=== PATIENT | born 2000 ===

== ENCOUNTER 2020-09-18 10:02 | Outpatient (REF) | payer BC, SELFPAY | END 2020-09-18 10:03 | disposition home or self-care (01) | LOC: HO.SCI 10:02 | PROVIDERS: Visit Provider Otolaryngology | DX: Z13.89 Encounter for screening for other disorder (principal) ==

== ENCOUNTER 2020-09-27 15:03 | Outpatient (REF) | payer BC, SELFPAY ==
--- NOTE | ~2020-09-27 | CT_ITS ---
EXAMINATION: CT MAXILLOFACIAL WITHOUT CONTRAST CLINICAL INFORMATION: Sinonasal polyp. COMPARISON: None available. TECHNIQUE: Multidetector helical imaging was performed in the axial plane with generation of coronal and sagittal reformatted images. This CT examination was performed using dose optimization techniques as appropriate, variously including the following: *Automated exposure control. *Adjustment of mA and/or kV according to patient size (this includes techniques or standardized protocols for targeted exams where dose is matched to indication/reason for exam; i.e. extremities or head). *Use of iterative reconstruction technique. DLP: 83 mGy-cm FINDINGS: FRONTAL SINUSES AND DRAINAGE PATHWAYS: The frontal sinuses are clear. The frontoethmoidal recesses are patent. MAXILLARY SINUSES AND DRAINAGE PATHWAYS: Mild mucosal thickening of the maxillary sinuses. The maxillary ostia and infundibula are patent. ETHMOID SINUSES: Minimal mucosal thickening of the ethmoid air cells. The ethmoid roofs appear symmetric and intact. SPHENOID SINUS AND DRAINAGE PATHWAYS: Minimal mucosal thickening of the sphenoid sinus. Partial opacification of the sphenoethmoidal recesses. NASAL PASSAGE: Mild to moderate mucosal thickening of the nasal passages, most notably anteriorly. No demonstrated polypoid mucosal thickening. Moderate rightward nasal septal deviation. There is a small region of dehiscence within the posterior nasal septum. ADDITIONAL RELEVANT FINDINGS: Postsurgical changes of prior maxillofacial surgery with bilateral malleable plate and screw fixation along the nasomaxillary struts, zygomaticomaxillary sutures, and mandibular rami. The hard palate remains not fully fused in the midline. The lamina papyracea are intact. No demonstrated abnormalities of the orbits. The carotid canals are normally covered by bone. No significant maxillary periapical disease. The temporomandibular joints are normal. Trace left-sided mastoid effusion. The right-sided mastoid air cells and middle ear cavities remain well aerated. Limited evaluation of the intracranial structures without significant abnormalities. Nonspecific moderate prominence of the adenoids. CT/CT sinus wo con IMPRESSION: 1. Mild sinonasal mucosal disease. Mild to moderate mucosal thickening of the nasal passages. No demonstrated polypoid mucosal thickening. 2. Changes of prior maxillofacial surgery. 3. Rightward nasal septal deviation. 4. Nonspecific moderate prominence of the adenoids.
== END 2020-09-27 15:04 | disposition home or self-care (01) ==
LOC: HO.CT 15:03
PROVIDERS: Visit Provider Otolaryngology
DX: J33.9 Nasal polyp, unspecified (principal)
CPT/HCPCS: 70486